=== PATIENT | female | born 1940 | race Caucasian/White ===

== ENCOUNTER → 2016-10-13 | Outpatient (CLI) | payer MEDICARE, MEDICAID ==
[~2016-10-13] MED LIST: ASPRIN PO; BIAXIN500 MG PO; CIPRODEX 0.3%-7.5 ML OT; CLARITIN10 MG PO; DARVOCET N 1001 TAB PO; GLUCOPHAGE500 MG PO; HYDROCODONE BIT1 T11 PO; TENORETIC 50 501 TAB PO; VALTREX1 GM PO; VICODIN 500 MG-1 TAB PO; ZOCOR20 MG PO; [UNRECOGNIZED DRUG - REMARK] PO; [UNRECOGNIZED DRUG - REMARK] PO
[2016-10-13 12:23] LABS: ALBUMIN 3.7 gm/dl (3.1-4.5); BILIRUBIN, TOTAL 0.4 mg/dl (0.2-1.0); FREE T4 1.24 ng/dl (0.76-1.46); POTASSIUM 4.6 mmol/L (3.5-5.1); TOTAL PROTEIN 7.2 gm/dL (6.4-8.2)
[2016-10-13 12:29] LABS: THYROID STIM HORMONE (HS) 1.53 uIU/ml (0.358-4.75)
== END | disposition home or self-care (01) ==
LOC: LAB 10:50 → RAD 11:00
PROVIDERS: Internal Medicine
DX: Z13.820 Encounter for screening for osteoporosis (principal); E05.90 Thyrotoxicosis, unspecified without thyrotoxic crisis or storm; Z78.0 Asymptomatic menopausal state

== ENCOUNTER → 2016-12-30 | Outpatient (CLI) | payer MEDICARE, MEDICAID ==
[2016-12-30 10:39] LABS: BASO # 0.1 10*3/uL (0.0-0.1); BASO % 0.8 % (0.0-1.0); EOS # 0.1 10*3/uL (0.0-0.4); EOS % 1.7 % (1.0-4.0); HEMATOCRIT 36.9 % (37.0-47.0); HEMOGLOBIN 11.5 g/dl (12.0-16.0); LYMPH # 1.6 10*3/uL (1.3-4.4); LYMPH % 27.3 % (27.0-41.0); MEAN CELL VOLUME 96.9 fl (81.0-99.0); MEAN CORPUSCULAR HGB 30.2 pg (27.0-31.0); MEAN CORPUSCULAR HGB CONC 31.2 g/dl (33.0-37.0); MEAN PLATELET VOLUME 11.3 fl (9.6-12.3); MONO # 0.3 10*3/uL (0.1-1.0); MONO % 5.4 % (3.0-9.0); NEUT # 3.8 10*3/uL (2.3-7.9); NEUT % 64.6 % (47.0-73.0); PLATELET COUNT AUTOMATED 226 10*3/uL (130-400); RED BLOOD COUNT 3.81 10*6/uL (4.10-5.10); RED CELL DISTRI WIDTH 12.7 % (0-14.5); WHITE BLOOD COUNT 5.9 10*3/uL (4.8-10.8)
[2016-12-30 11:04] LABS: ALBUMIN 3.5 gm/dl (3.1-4.5); CREATININE 1.49 mg/dL (0.55-1.02); FREE T4 1.23 ng/dl (0.76-1.46); POTASSIUM 4.7 mmol/L (3.5-5.1); TOTAL PROTEIN 6.9 gm/dL (6.4-8.2)
[2016-12-30 11:09] LABS: THYROID STIM HORMONE (HS) 1.06 uIU/ml (0.358-4.75)
== END ==
LOC: LAB 10:07
PROVIDERS: Internal Medicine
DX: E11.9 Type 2 diabetes mellitus without complications (principal); E05.90 Thyrotoxicosis, unspecified without thyrotoxic crisis or storm; E78.00 Pure hypercholesterolemia, unspecified

== ENCOUNTER → 2017-11-30 | Outpatient (CLI) | payer MEDICARE, MEDICAID ==
--- NOTE | ~2017-11-30 | EKG ---
[place], [place] ELECTROCARDIOGRAM REPORT NAME: WENCESLAO CARRASQUILLO UNIT #: [id number] ROOM: DOCTOR: EPIPHANY DRAFT REPORT BIRTHDATE: [birth year] [facility] Test Date: 2017-11-30 Test Time: 11:21:36 Pat Name: WENCESLAO CARRASQUILLO Department: Room: Gender: F Patient Assessment Coordinator: Anny Campos : 1940 Requested By: WILLIAMS ABEL Order Number: [id number] Reading MD: Williams Abel MD Measurements Intervals [place] Rate: 69 P: 60 [place]: 181 QRS: 18 QRSD: 84 T: 22 QT: 397 QTc: 426 Interpretive Statements Sinus rhythm Low voltage, precordial leads Abnormal R-wave progression, early transition Electronically Signed On 11-30-2017 19:10:02 PDT by Williams Abel MD CM:EKGRPT:ELECTROCARDIOGRAM REPORT [id number] WILLIAMS ABEL MD EPIPHANY DRAFT REPORT WILLIAMS ABEL MD
[2017-11-30 11:08] LABS: BASO # 0.1 10*3/uL (0.0-0.1); BASO % 0.8 % (0.0-1.0); EOS # 0.1 10*3/uL (0.0-0.4); EOS % 2.2 % (1.0-4.0); HEMATOCRIT 37.8 % (37.0-47.0); HEMOGLOBIN 11.8 g/dl (12.0-16.0); LYMPH # 1.8 10*3/uL (1.3-4.4); LYMPH % 28.3 % (27.0-41.0); MEAN CELL VOLUME 99.2 fl (81.0-99.0); MEAN CORPUSCULAR HGB CONC 31.2 g/dl (33.0-37.0); MEAN PLATELET VOLUME 11.8 fl (9.6-12.3); MONO # 0.4 10*3/uL (0.1-1.0); NEUT % 62.5 % (47.0-73.0); PLATELET COUNT AUTOMATED 230 10*3/uL (130-400); RED BLOOD COUNT 3.81 10*6/uL (4.10-5.10); RED CELL DISTRI WIDTH 13.4 % (0-14.5); WHITE BLOOD COUNT 6.5 10*3/uL (4.8-10.8)
[2017-11-30 11:36] LABS: ALBUMIN 3.5 gm/dl (3.1-4.5); ALKALINE PHOSPHATASE 59 U/L (45-117); BILIRUBIN, DIRECT < 0.1 mg/dL (0.0-0.2); BUN 24 mg/dl (7-24); CHLORIDE 106 mmol/L (98-107); CREATININE 1.35 mg/dL (0.55-1.02); FREE T4 1.18 ng/dl (0.76-1.46); POTASSIUM 4.4 mmol/L (3.5-5.1); SGOT/AST 11 IU/L (3-35); SGPT/ALT 14 U/L (12-78); SODIUM 141 mmol/L (136-145); TOTAL PROTEIN 6.7 gm/dL (6.4-8.2)
[2017-11-30 11:50] LABS: ACT PARTIAL THROMBO TIME 20.2 SECONDS (20.8-31.5); INTERNATIONAL NORM RATIO 0.9 (2.0-3.5)
== END | disposition home or self-care (01) ==
LOC: LAB 10:07
DX: Z01.818 Encounter for other preprocedural examination (principal); E05.90 Thyrotoxicosis, unspecified without thyrotoxic crisis or storm; E04.2 Nontoxic multinodular goiter; I10 Essential (primary) hypertension; D68.9 Coagulation defect, unspecified

== ENCOUNTER → 2018-01-23 | Outpatient (CLI) | payer MEDICARE, MEDICAID ==
[2018-01-23 11:48] LABS: CREATININE 1.23 mg/dL (0.55-1.02); FREE T4 1.82 ng/dl (0.76-1.46); POTASSIUM 4.4 mmol/L (3.5-5.1)
[2018-01-23 11:54] LABS: THYROID STIM HORMONE (HS) 0.084 uIU/ml (0.358-4.75)
[2018-01-24 05:07] LABS: FREE T3 010389 3.3 pg/mL (2.0-4.4)
== END | disposition home or self-care (01) ==
LOC: LAB 10:43
PROVIDERS: Specialist
DX: E05.90 Thyrotoxicosis, unspecified without thyrotoxic crisis or storm (principal)

== ENCOUNTER 2018-03-12 15:06 | Inpatient (IN) | payer MEDICARE, MEDICAID ==
[~2018-03-12] VITALS: Ht 157.5 cm; Wt 83.7 kg
--- NOTE | ~2018-03-12 | EKG ---
[place], [place] ELECTROCARDIOGRAM REPORT NAME: WENCESLAO CARRASQUILLO UNIT #: [id number] ROOM: 515 DOCTOR: IDALMIS DRAFT REPORT BIRTHDATE: [birth year] [facility] Test Date: 2018-03-12 Test Time: 18:34:31 Pat Name: WENCESLAO CARRASQUILLO Department: Room: [facility] Gender: F Chair Upholsterer: Catherine Macias : 1940 Requested By: MAR CASTILLO Order Number: [id number] Reading MD: Be Cardenas MD Measurements Intervals [place] Rate: 79 P: 36 [place]: 186 QRS: 21 QRSD: 80 T: 26 QT: 362 QTc: 416 Interpretive Statements Sinus rhythm Abnormal R-wave progression, early transition Compared to ECG 11/30/2017 11:21:36 No significant changes Electronically Signed On 03-14-2018 9:05:14 PST by Be Cardenas MD CM:EKGRPT:ELECTROCARDIOGRAM REPORT [id number] MAR CASTILLO EPIPHANY DRAFT REPORT MAR CASTILLO
--- NOTE | ~2018-03-12 | EKG ---
[place], [place] ELECTROCARDIOGRAM REPORT NAME: WENCESLAO CARRASQUILLO UNIT #: [id number] ROOM: 515 DOCTOR: IDALMIS DRAFT REPORT BIRTHDATE: [birth year] [facility] Test Date: 2018-03-12 Test Time: 15:12:22 Pat Name: WENCESLAO CARRASQUILLO Department: Room: [facility] Gender: F Quality Assurance Consultant: Catherine Macias : 1940 Requested By: MAR CASTILLO Order Number: [id number] Reading MD: Be Cardenas MD Measurements Intervals [place] Rate: 93 P: 57 [place]: 188 QRS: 41 QRSD: 80 T: 30 QT: 329 QTc: 410 Interpretive Statements Sinus rhythm Atrial premature complex Low voltage, precordial leads Borderline ST depression, anterolateral leads Compared to ECG 11/30/2017 11:21:36 Atrial premature complex(es) now present ST (T wave) deviation now present Electronically Signed On 03-14-2018 9:03:30 PST by Be Cardenas MD CM:EKGRPT:ELECTROCARDIOGRAM REPORT [id number] MAR CASTILLO EPIPHANY DRAFT REPORT MAR CASTILLO
--- NOTE | ~2018-03-12 | EKG ---
[place], [place] ELECTROCARDIOGRAM REPORT NAME: WENCESLAO CARRASQUILLO UNIT #: [id number] ROOM: 515 DOCTOR: FRANKANY DRAFT REPORT BIRTHDATE: [birth year] [facility] Test Date: 2018-03-12 Test Time: 20:44:14 Pat Name: WENCESLAO CARRASQUILLO Department: Room: [facility] Gender: F Surgical Tech: Catherine Macias : 1940 Requested By: MAR CASTILLO Order Number: [id number] Reading MD: Be Cardenas MD Measurements Intervals [place] Rate: 71 P: 32 MA: 191 QRS: 30 QRSD: 78 T: 25 QT: 396 QTc: 431 Interpretive Statements Sinus rhythm Abnormal R-wave progression, early transition Compared to ECG 11/30/2017 11:21:36 No significant changes Electronically Signed On 03-14-2018 9:06:08 PST by Be Cardenas MD CM:EKGRPT:ELECTROCARDIOGRAM REPORT [id number] MAR CASTILLO EPIPHANY DRAFT REPORT MAR CASTILLO
[2018-03-12 15:15] VITALS: BP 181/68
[2018-03-12 15:37] LABS: BASO % 0.6 % (0.0-1.0); EOS # 0.1 10*3/uL (0.0-0.4); EOS % 1.4 % (1.0-4.0); HEMATOCRIT 39.2 % (37.0-47.0); HEMOGLOBIN 12.5 g/dl (12.0-16.0); LYMPH # 1.9 10*3/uL (1.3-4.4); LYMPH % 26.7 % (27.0-41.0); MEAN CELL VOLUME 94.5 fl (81.0-99.0); MEAN CORPUSCULAR HGB 30.1 pg (27.0-31.0); MEAN CORPUSCULAR HGB CONC 31.9 g/dl (33.0-37.0); MONO # 0.4 10*3/uL (0.1-1.0); MONO % 5.5 % (3.0-9.0); NEUT # 4.6 10*3/uL (2.3-7.9); NEUT % 65.5 % (47.0-73.0); PLATELET COUNT AUTOMATED 266 10*3/uL (130-400); RED BLOOD COUNT 4.15 10*6/uL (4.10-5.10); RED CELL DISTRI WIDTH 13.7 % (0-14.5)
--- NOTE | 2018-03-12 15:39 | NUR ---
STATES THAT THE PRESSURE IS GONE BETWEEN HER SHOULDER BLADES.
[2018-03-12 15:55] LABS: ALBUMIN 3.3 gm/dl (3.1-4.5); ALKALINE PHOSPHATASE 52 U/L (45-117); BUN 23 mg/dl (7-24); CHLORIDE 109 mmol/L (98-107); CREATININE 1.21 mg/dL (0.55-1.02); POTASSIUM 4.3 mmol/L (3.5-5.1); SGOT/AST 13 IU/L (3-35); SGPT/ALT 19 U/L (12-78); SODIUM 141 mmol/L (136-145); TOTAL PROTEIN 6.6 gm/dL (6.4-8.2)
[2018-03-12 15:58] LABS: LIPASE 101 U/L (73-393); TROPONIN I < 0.015 ng/ml (<0.045)
[2018-03-12 16:19] LABS: ACT PARTIAL THROMBO TIME 21.9 SECONDS (20.8-31.5); INTERNATIONAL NORM RATIO 0.9 (2.0-3.5)
[2018-03-12 16:31] VITALS: BP 168/75
[2018-03-12] MEDS ORDERED: PRINIVIL10 MG PO (16:35)
[2018-03-12] MEDS ORDERED: VITAMIN D-32000 UNI1 PO (16:36)
[2018-03-12] MEDS ORDERED: LEVOXYL112 MCG PO (16:37)
[2018-03-12] MEDS ORDERED: MELOXICAM15 MG PO (16:38)
--- NOTE | 2018-03-12 16:39 | NUR ---
RESIDENT IN ROOM. ADMISSION INFO RECIEVED
--- NOTE | 2018-03-12 16:40 | NUR ---
STILL PRESSURE FREE.
--- NOTE | 2018-03-12 17:02 | NUR ---
A 78, admitted to 5E, under the services of KIERA Rodriguez DO with a diagnosis of CP R/O PR. Chief complaint is CHEST PAIN. Patient arrived via bed from ER. Monitor applied. Initial assessment completed. Vital signs taken and recorded. KIERA RODRIGUEZ DO notified of admission to the unit. Orders received. See assessment for past medical history, medications and allergies. Patient and/or family oriented to unit. Clothing/patient valuable form completed. DAYNE MOSLEY
--- NOTE | 2018-03-12 17:37 | NUR ---
INFORMED THAT MEDICATIONS ARE VERIFIED.
--- NOTE | 2018-03-12 18:08 | NUR ---
ANSWERING SERVICES CALLED FOR .
--- NOTE | 2018-03-12 18:10 | NUR ---
INFORMED OF CONSULT. STATED HE WILL SEE IN MORNING.
--- NOTE | 2018-03-12 18:27 | NUR ---
PATIENT MEDICATED WITH TYLENOL FOR C/O HEADACHE. WILL MONITOR.
[2018-03-12 20:00] VITALS: BP 144/64
--- NOTE | 2018-03-12 20:00 | NUR ---
RESTING IN BED WITH NO DISTRESS NOTED. RESPIRATIONS EASY. LUNGS DIMINISHED, CLEAR. PULSE OX 99% RA. TRACE BLE EDEMA - OFFERED AND EDUCATED REGARDING, RECEPTIVE AND TEDS PLACED AT BEDSIDE. CALL LIGHT WITHIN REACH. NO VOICED COMPLAINTS
--- NOTE | 2018-03-12 22:00 | NUR ---
BSG 178, DECLINED COVERAGE. WILL RECHECK IN AM
--- NOTE | 2018-03-12 23:44 | NUR ---
REQUESTED AND RECEIVED TYLENOL PER PRN ORDER FOR COMPLAINTS OF BACK PAIN RATING A 6. CALL LIGHT WITHIN REACH. WILL MONITOR FOR EFFECTIVENESS
[2018-03-13] VITALS: BP 133/50
--- NOTE | 2018-03-13 00:30 | NUR ---
EARLIER TYLENOL APPEARS EFFECTIVE. SLEEPING. RESPIRATIONS EASY. VSS. CALL LIGHT WITIN REACH
--- NOTE | 2018-03-13 02:15 | NUR ---
24 HR chart check completed.
--- NOTE | 2018-03-13 06:00 | NUR ---
SLEPT THROUGHOUT NIGHT WITH NO DISTRESS NOTED. RESPIRATIONS EASY. NPO STATUS MAINTAINED FOR TESTING. CALL LIGHT WITHIN REACH. NO VOICED COMPLAINTS THIS SHIFT
[2018-03-13 06:21] LABS: BASO % 0.6 % (0.0-1.0); EOS # 0.1 10*3/uL (0.0-0.4); HEMATOCRIT 38.8 % (37.0-47.0); HEMOGLOBIN 12.1 g/dl (12.0-16.0); LYMPH # 2.6 10*3/uL (1.3-4.4); LYMPH % 38.9 % (27.0-41.0); MEAN CELL VOLUME 95.3 fl (81.0-99.0); MEAN CORPUSCULAR HGB 29.7 pg (27.0-31.0); MEAN CORPUSCULAR HGB CONC 31.2 g/dl (33.0-37.0); MEAN PLATELET VOLUME 10.9 fl (9.6-12.3); MONO # 0.4 10*3/uL (0.1-1.0); MONO % 5.3 % (3.0-9.0); NEUT # 3.5 10*3/uL (2.3-7.9); NEUT % 52.9 % (47.0-73.0); PLATELET COUNT AUTOMATED 264 10*3/uL (130-400); RED BLOOD COUNT 4.07 10*6/uL (4.10-5.10); RED CELL DISTRI WIDTH 13.5 % (0-14.5); WHITE BLOOD COUNT 6.6 10*3/uL (4.8-10.8)
[2018-03-13 06:53] LABS: CREATININE 1.09 mg/dL (0.55-1.02); FREE T4 1.28 ng/dl (0.76-1.46); PHOSPHOROUS 3.6 mg/dL (2.5-4.9); POTASSIUM 3.9 mmol/L (3.5-5.1)
[2018-03-13 06:59] LABS: THYROID STIM HORMONE (HS) 1.05 uIU/ml (0.358-4.75)
--- NOTE | 2018-03-13 07:50 | NUR ---
RESTING IN BED. RESP-EASY AND REGULAR. WITH MOVEMENT STATES LEFT SHOULDER BLADE/BACK PAIN, RATES PAIN 5 ON PAIN SCALE. REFUSED MEDICATION AT THIS TIME. CALL LIGHT IN REACH. WAITING TO GO FOR STRESS TEST. SEE SHIFT ASESSMENT.
[2018-03-13 08:24] LABS: VITAMIN D, 25-HYDROXY 38.7 ng/mL (30-100)
--- NOTE | 2018-03-13 09:00 | NUR ---
OFF FLOOR FOR STRESS TEST.
--- NOTE | 2018-03-13 10:23 | NUR ---
Fire Medic in to talk to patient. Patient states lives at HOME with DAUGHTER. There are 10 steps in the home. Physician: KIRK TEJADA [facility] health services: NONE Patient's level of ADLs: INDEPENDENT Patient has working utilities: YES DME: NONE Follow-up physician's appointment after d/c: [facility] NURSE DIRECTOR ON DISCHARGE Does patient want to access PORTAL?: NO Discharge plan PT STATES SHE LIVES AT HOME WITH HER DAUGHTER LIVING WITH HER. STATES SHE IS INDEPENDENT IN CARE AND HAS NO NEEDS ON DISCHARGE. PT CAN BE DISCHARGED TO HOME WHEN MEDICALLY STABLE. WILL CONTINUE TO FOLLOW.. KEO FONG
--- NOTE | 2018-03-13 10:40 | NUR ---
INFORMED CONSENT SIGNED FOR LEXISCAN STRESS TEST WITH DR. ROCK. RESTING EKG NSR HR 76,BP 170/84. PULSE OX 98% AND LUNGS CLEAR. COMPLETED ONE MINUTE OF LEXISCAN STRESS TEST RECEIVING LEXISCAN 0.4MG OVER [address] SEC[address] NO ARRHYTHMIAS OR [address] CHANGES PRESENT. PT C/O WEIRD FEELING. LAST RECOVERY HR 91,BP 162/84. WAITING NUCLEAR SCANNING IN STABLE CONDITION.
--- NOTE | 2018-03-13 11:50 | NUR ---
RETURNED TO FLOOR FROM STRESS TEST.
[2018-03-13 12:00] VITALS: BP 169/65
--- NOTE | 2018-03-13 12:10 | NUR ---
PT TOLERATED ROUTINE MEDS WITH NO PROBLEM. BSG-168, SEE EMAR. C/O HEADACHE, RATES PAIN 10 ON PAIN SCALE 0-10. MEDICATED WITH NORCO PO PER PRN ORDER, SEE EMAR. CALL LIGHT IN REACH.
--- NOTE | 2018-03-13 14:19 | NUR ---
PT C/O HEADACHE, RATES PAIN 7 ON PAIN SCALE 0-10. MEDICATED IWTH TYLNEOL TWO TAB PO PER PRN ORDER, SEE EMAR. CALL LIGHT IN REACH.
--- NOTE | 2018-03-13 15:00 | NUR ---
STATES PAIN MEDICATION HELPED A LITTLE. CALL LIGHT IN REACH.
[2018-03-13 16:00] VITALS: BP 141/61
[2018-03-13] MEDS ORDERED: B12100 MC1 PO (16:21)
--- NOTE | 2018-03-13 16:57 | NUR ---
C/O HEADACHE RATES PAIN 6 ON PAIN SCALE 0-10. MEDICATED WITH NORCO PO PER PRN ORDER, SEE EMAR. CALL LIGHT IN REACH. SEE SHIFT ASSESSMNET.
--- NOTE | 2018-03-13 18:45 | NUR ---
AMBULATORY OFF THE FLOOR.
--- NOTE | 2018-03-13 18:55 | NUR ---
Discharge instructions reviewed with patient/family. Patient receptive and verbalizes understanding. Follow-up care arranged. Written instructions given to patient/family. HEPLOCK REMOVED 2X2 APPLIED. MONITOR REMOVED. MATTHEW JACOBO
--- NOTE | 2018-03-13 19:25 | NUR ---
PT AMBULATORY OFF THE FLOOR FOR DISCHARGE, FAMILY WAITING OUTSIDE.
== END 2018-03-13 19:25 | disposition home or self-care (01) | DRG 392 ==
LOC: ED 15:06 → EDHOLD 16:15 → 5E 16:15
PROVIDERS: Emergency Medicine; Family Medicine; Nurse Practitioner Family; ADMIT Internal Medicine
PROC: 3E073KZ Introduction of Other Diagnostic Substance into Coronary Artery, Percutaneous Approach (ICD-10-PCS; principal; 2018-03-13)
PROC: 4A02XM4 Measurement of Cardiac Total Activity, External Approach (ICD-10-PCS; principal; 2018-03-13)
DX: K21.9 Gastro-esophageal reflux disease without esophagitis (principal); I16.0 Hypertensive urgency; N18.3 Chronic kidney disease, stage 3 (moderate); F32.9 Major depressive disorder, single episode, unspecified; M19.90 Unspecified osteoarthritis, unspecified site; I12.9 Hypertensive chronic kidney disease with stage 1 through stage 4 chronic kidney disease, or unspecified chronic kidney disease; E87.8 Other disorders of electrolyte and fluid balance, not elsewhere classified; E11.65 Type 2 diabetes mellitus with hyperglycemia; E11.22 Type 2 diabetes mellitus with diabetic chronic kidney disease; M51.35 Other intervertebral disc degeneration, thoracolumbar region; Z88.9 Allergy status to unspecified drugs, medicaments and biological substances; Z88.1 Allergy status to other antibiotic agents; Z90.710 Acquired absence of both cervix and uterus; Z90.49 Acquired absence of other specified parts of digestive tract; Z83.3 Family history of diabetes mellitus; Z83.6 Family history of other diseases of the respiratory system; Z82.49 Family history of ischemic heart disease and other diseases of the circulatory system; Z79.84 Long term (current) use of oral hypoglycemic drugs

== ENCOUNTER → 2018-09-04 | Outpatient (CLI) | payer MEDICARE, MEDICAID ==
[~2018-09-04] MED LIST changes: +B12100 MC1 PO; +LEVOXYL112 MCG PO; +MELOXICAM15 MG PO; +PRINIVIL10 MG PO; +VITAMIN D-32000 UNI1 PO
[2018-09-04 12:20] LABS: FREE T4 1.23 ng/dl (0.76-1.46)
== END | disposition home or self-care (01) ==
LOC: LAB 10:15
PROVIDERS: Internal Medicine Endocrinology, Diabetes & Metabolism
DX: E03.9 Hypothyroidism, unspecified (principal); E11.9 Type 2 diabetes mellitus without complications; E55.9 Vitamin D deficiency, unspecified

== ENCOUNTER 2018-10-02 14:04 | Emergency (ER) | payer MEDICARE, MEDICAID ==
[~2018-10-02] VITALS: Ht 157.4 cm; Wt 81.6 kg
[2018-10-02 15:43] LABS: BASO % 0.6 % (0.0-1.0); EOS # 0.1 10*3/uL (0.0-0.4); HEMATOCRIT 36.8 % (37.0-47.0); HEMOGLOBIN 11.6 g/dl (12.0-16.0); LYMPH # 2.2 10*3/uL (1.3-4.4); LYMPH % 33.8 % (27.0-41.0); MEAN CELL VOLUME 99.7 fl (81.0-99.0); MEAN CORPUSCULAR HGB 31.4 pg (27.0-31.0); MEAN CORPUSCULAR HGB CONC 31.5 g/dl (33.0-37.0); MEAN PLATELET VOLUME 10.8 fl (9.6-12.3); MONO # 0.5 10*3/uL (0.1-1.0); MONO % 7.1 % (3.0-9.0); NEUT # 3.7 10*3/uL (2.3-7.9); NEUT % 56.3 % (47.0-73.0); PLATELET COUNT AUTOMATED 227 10*3/uL (130-400); RED BLOOD COUNT 3.69 10*6/uL (4.10-5.10); RED CELL DISTRI WIDTH 13.4 % (0-14.5); WHITE BLOOD COUNT 6.5 10*3/uL (4.8-10.8)
[2018-10-02 15:59] LABS: ACT PARTIAL THROMBO TIME 22.8 SECONDS (20.0-32.1); INTERNATIONAL NORM RATIO 0.9 (2.0-3.5)
[2018-10-02 16:00] LABS: ALBUMIN 3.4 gm/dl (3.1-4.5); ALKALINE PHOSPHATASE 48 U/L (45-117); BUN 22 mg/dl (7-24); CHLORIDE 105 mmol/L (98-107); CREATININE 1.28 mg/dL (0.55-1.02); POTASSIUM 4.5 mmol/L (3.5-5.1); SGOT/AST 10 IU/L (3-35); SGPT/ALT 17 U/L (12-78); SODIUM 138 mmol/L (136-145); TOTAL PROTEIN 6.3 gm/dL (6.4-8.2)
[2018-10-02 16:24] LABS: TROPONIN I < 0.015 ng/ml (<0.045)
[2018-10-02 16:55] VITALS: BP 160/82
== END 2018-10-02 17:01 | disposition short-term general hospital (02) ==
LOC: ED 14:04
PROVIDERS: Emergency Medicine
DX: S06.6X9A Traumatic subarachnoid hemorrhage with loss of consciousness of unspecified duration, initial encounter (principal); S00.12XA Contusion of left eyelid and periocular area, initial encounter; S00.83XA Contusion of other part of head, initial encounter; E11.22 Type 2 diabetes mellitus with diabetic chronic kidney disease; I12.9 Hypertensive chronic kidney disease with stage 1 through stage 4 chronic kidney disease, or unspecified chronic kidney disease; N18.3 Chronic kidney disease, stage 3 (moderate); E78.5 Hyperlipidemia, unspecified; E03.9 Hypothyroidism, unspecified; E66.9 Obesity, unspecified; Z88.1 Allergy status to other antibiotic agents; Z79.899 Other long term (current) drug therapy; Z79.82 Long term (current) use of aspirin; Z90.710 Acquired absence of both cervix and uterus; Z90.49 Acquired absence of other specified parts of digestive tract; W19.XXXA Unspecified fall, initial encounter; Y93.89 Activity, other specified; Y92.89 Other specified places as the place of occurrence of the external cause; Y99.8 Other external cause status

== ENCOUNTER → 2019-02-06 | Outpatient (CLI) | payer MEDICARE, MEDICAID | END | disposition home or self-care (01) | LOC: MRI 12:59 | DX: M25.411 Effusion, right shoulder (principal); M75.111 Incomplete rotator cuff tear or rupture of right shoulder, not specified as traumatic ==

== ENCOUNTER → 2019-03-25 | Outpatient (CLI) | payer MEDICARE, MEDICAID | END | disposition home or self-care (01) | LOC: MAMMO 12:59 | DX: Z12.31 Encounter for screening mammogram for malignant neoplasm of breast (principal); N63.11 Unspecified lump in the right breast, upper outer quadrant ==

== ENCOUNTER → 2022-03-14 | Outpatient (CLI) | payer MEDICARE, MEDICAID | END | disposition home or self-care (01) | LOC: RAD 15:42 | PROVIDERS: ATTEND Physician Assistant | DX: M16.11 Unilateral primary osteoarthritis, right hip (principal); M25.851 Other specified joint disorders, right hip; W19.XXXA Unspecified fall, initial encounter ==

== ENCOUNTER 2023-07-27 16:06 | Emergency (ER) | payer MEDICARE, MEDICAID ==
[~2023-07-27] VITALS: Ht 157.4 cm; Wt 72.6 kg
[~2023-07-27 16:06] MED LIST changes: +ANASTROZOLE1 M1 PO; +ATENOLOL25 MG PO; +CIPRO500 MG PO; +SYNTHROID,LEVO88 MCG PO; +TUMS200 MG PO; +XARELTO1 EACH PO; +ZYRTEC10 M2 PO
[2023-07-27 16:13] VITALS: BP 153/52
[2023-07-27 17:00] LABS: HEMATOCRIT 32.4 % (37.0-47.0); LYMPH # 0.6 10*3/uL (1.3-4.4); LYMPH % 7.9 % (27.0-41.0); MEAN CELL VOLUME 101.6 fl (81.0-99.0); MEAN CORPUSCULAR HGB 32.3 pg (27.0-31.0); MEAN CORPUSCULAR HGB CONC 31.8 g/dl (33.0-37.0); MEAN PLATELET VOLUME 10.6 fl (9.6-12.3); MONO # 0.2 10*3/uL (0.1-1.0); NEUT # 6.2 10*3/uL (2.3-7.9); NEUT % 88.8 % (47.0-73.0); PLATELET COUNT AUTOMATED 215 10*3/uL (130-400); RED BLOOD COUNT 3.19 10*6/uL (4.10-5.10); RED CELL DISTRI WIDTH 12.8 % (0-14.5)
[2023-07-27 17:26] LABS: POTASSIUM 3.7 mmol/L (3.4-5.1)
== END 2023-07-27 18:46 | disposition home or self-care (01) ==
LOC: ED 16:06
PROVIDERS: Emergency Medicine
DX: S00.83XA Contusion of other part of head, initial encounter (principal); E11.9 Type 2 diabetes mellitus without complications; Z88.1 Allergy status to other antibiotic agents; Z88.8 Allergy status to other drugs, medicaments and biological substances; Z90.710 Acquired absence of both cervix and uterus; Z90.49 Acquired absence of other specified parts of digestive tract; Z90.89 Acquired absence of other organs; Z98.890 Other specified postprocedural states; W17.89XA Other fall from one level to another, initial encounter; Y93.89 Activity, other specified; Y92.89 Other specified places as the place of occurrence of the external cause; Y99.8 Other external cause status

== ENCOUNTER 2023-11-03 10:49 | Inpatient (IN) | payer MEDICARE ==
[~2023-11-03] VITALS: Ht 157.4 cm; Wt 71.0 kg
[~2023-11-03 10:49] MED LIST changes: +ASPIRIN81 M1 PO; +Carafate1 GM PO; +DOCUSATE SOD100 MG PO; +DOXYCYCLINE HY100 M3 PO; +Humalog SQ; +LEVOTHYROXINE100 MC1 PO; +MIRALAX POWDER17 G1 PO; +NYAMYC15 GM T; +PROTONIX40 MG PO; +SEPTDS PO; +VITAMIN B-12100 MCG PO; +VITAMIN B1250 MCG PO; +XARE20MG PO
[2023-11-03 15:00] VITALS: BP 141/59
[2023-11-03] MEDS ORDERED: LORazepam 1 MG TAB PO PRN (15:20)
[2023-11-03] MEDS ORDERED: Ziprasidone Mesylate 20 MG VIAL IM PRN (15:20)
[2023-11-03] MEDS ORDERED: LORazepam 2 MG/ML VIAL IM PRN (15:20)
[2023-11-03] MEDS ORDERED: Magnesium Hydroxide 30 ML UDC PO PRN (15:30)
[2023-11-03] MEDS ORDERED: ACETAMINOPHEN 325 MG TAB PO PRN (15:30)
[2023-11-03] MEDS ORDERED: MG-AL HYDROXIDE/SIMETICONE 30 ML UDC PO PRN (15:30)
[2023-11-03] MEDS ORDERED: DEXTROSE 10 % IN WATER 250 ML IV PRN (16:20)
[2023-11-03] MEDS ORDERED: INSULIN LISPRO 1 UNIT/0.01 ML SQ SCH (16:30)
[2023-11-03] MEDS ORDERED: SUCRALFATE 1 GM TAB PO SCH (16:30)
[2023-11-03 20:00] VITALS: BP 142/68
[2023-11-03] MEDS ORDERED: Mirtazapine 15 MG TAB PO SCH (21:00)
[2023-11-03] MEDS ORDERED: SIMVASTATIN 20 MG TAB PO SCH (21:00)
[2023-11-03] MEDS ORDERED: Pantoprazole Sodium 40 MG TAB PO SCH (21:00)
[2023-11-03] MEDS ORDERED: DOCUSATE SODIUM 100 MG CAP PO SCH (21:00)
[2023-11-03] MEDS ORDERED: Memantine Hydrochloride 5 MG TAB PO SCH (21:00)
[2023-11-04 03:28] LABS: BILIRUBIN Negative (Negative); BLOOD Negative (Negative); CLARITY Clear (Clear); COLOR Yellow (Yellow); GLUCOSE Negative (Negative); KETONE Negative (Negative); LEUKO ESTERASE Trace (Negative); NITRITE Negative (Negative); SPECIFIC GRAVITY <= 1.005 (1.001-1.030); UROBILINOGEN 0.2 E.U./dl (0.0-1.0)
[2023-11-04 04:08] LABS: BACTERIA 3+
[2023-11-04] MEDS ORDERED: Levothyroxine Sodium 100 MCG TAB PO SCH (06:00)
[2023-11-04 06:58] LABS: BASO % 0.4 % (0.0-1.0); EOS # 0.1 10*3/uL (0.0-0.4); HEMATOCRIT 30.1 % (37.0-47.0); LYMPH % 28.9 % (27.0-41.0); MEAN CELL VOLUME 92.9 fl (81.0-99.0); MEAN CORPUSCULAR HGB 27.8 pg (27.0-31.0); MEAN CORPUSCULAR HGB CONC 29.9 g/dl (33.0-37.0); MEAN PLATELET VOLUME 10.5 fl (9.6-12.3); MONO # 0.4 10*3/uL (0.1-1.0); MONO % 5.9 % (3.0-9.0); NEUT # 4.4 10*3/uL (2.3-7.9); NEUT % 63.4 % (47.0-73.0); PLATELET COUNT AUTOMATED 317 10*3/uL (130-400); RED BLOOD COUNT 3.24 10*6/uL (4.10-5.10); RED CELL DISTRI WIDTH 15.1 % (0-14.5); WHITE BLOOD COUNT 6.9 10*3/uL (4.8-10.8)
[2023-11-04 07:27] LABS: VITAMIN D, 25-HYDROXY 44.2 ng/mL (30-100)
[2023-11-04 07:29] LABS: POTASSIUM 4.3 mmol/L (3.4-5.1); TOTAL PROTEIN 6.2 gm/dL (6.0-8.0)
[2023-11-04 08:24] VITALS: BP 118/87
[2023-11-04] MEDS ORDERED: RIVAROXABAN 20 MG TAB PO SCH (09:00)
[2023-11-04] MEDS ORDERED: CYANOCOBALAMIN 100 MCG TAB PO SCH (09:00)
[2023-11-04] MEDS ORDERED: LISINOPRIL 10 MG TAB PO SCH (09:00)
[2023-11-04] MEDS ORDERED: Polyethylene Glycol 3350 17 GM PACKET PO SCH (09:00)
[2023-11-04] MEDS ORDERED: Rivastigmine Tartrate 4.6 MG/24 HR PATCH T SCH (09:00)
[2023-11-04] MEDS ORDERED: ATENOLOL 25 MG TAB PO SCH (10:00)
[2023-11-04 20:00] VITALS: BP 125/60
[2023-11-05 06:54] LABS: BASO % 0.5 % (0.0-1.0); EOS # 0.1 10*3/uL (0.0-0.4); EOS % 1.7 % (1.0-4.0); HEMATOCRIT 33.1 % (37.0-47.0); LYMPH % 37.3 % (27.0-41.0); MEAN CELL VOLUME 94.8 fl (81.0-99.0); MEAN CORPUSCULAR HGB 27.5 pg (27.0-31.0); MEAN PLATELET VOLUME 10.1 fl (9.6-12.3); MONO # 0.6 10*3/uL (0.1-1.0); MONO % 7.3 % (3.0-9.0); NEUT # 4.3 10*3/uL (2.3-7.9); NEUT % 52.3 % (47.0-73.0); PLATELET COUNT AUTOMATED 342 10*3/uL (130-400); RED BLOOD COUNT 3.49 10*6/uL (4.10-5.10); RED CELL DISTRI WIDTH 15.2 % (0-14.5); WHITE BLOOD COUNT 8.1 10*3/uL (4.8-10.8)
[2023-11-05 07:20] LABS: POTASSIUM 3.9 mmol/L (3.4-5.1)
[2023-11-05 08:00] VITALS: BP 141/68
[2023-11-05] MEDS ORDERED: FOLIC ACID 1 MG TAB PO SCH (09:00)
[2023-11-05] MEDS ORDERED: Fosfomycin Tromethamine 3 GM PDS PO SCH (13:00)
[2023-11-05 19:06] VITALS: BP 128/86
[2023-11-06 08:00] VITALS: BP 96/77
[2023-11-06] MEDS ORDERED: Memantine Hydrochloride 5 MG TAB PO SCH (09:00)
[2023-11-06 10:44] VITALS: BP 149/62
[2023-11-06 20:00] VITALS: BP 135/73
[2023-11-06] MEDS ORDERED: Memantine Hydrochloride 10 MG TAB PO SCH (21:00)
[2023-11-06] MEDS ORDERED: NYSTATIN 15 GM BOT T SCH (22:00)
[2023-11-07 07:44] VITALS: BP 100/67
[2023-11-07] MEDS ORDERED: Rivastigmine Tartrate 9.5 MG/24 HR PATCH T SCH (09:00)
[2023-11-07] MEDS ORDERED: LIDOCAINE 4% PATCH T SCH (09:00)
[2023-11-07 10:06] VITALS: BP 162/82
[2023-11-07 20:00] VITALS: BP 117/90
[2023-11-07] MEDS ORDERED: RAMELTEON 8 MG TAB PO SCH (21:00)
[2023-11-08 08:00] VITALS: BP 105/62
[2023-11-08] MEDS ORDERED: RIVASTIGMINE 13.3 MG/24 HR TDM T SCH (09:00)
[2023-11-08 09:20] LABS: BASO % 0.3 % (0.0-1.0); EOS # 0.2 10*3/uL (0.0-0.4); EOS % 1.6 % (1.0-4.0); HEMATOCRIT 28.3 % (37.0-47.0); LYMPH % 18.1 % (27.0-41.0); MEAN CELL VOLUME 92.8 fl (81.0-99.0); MEAN CORPUSCULAR HGB 28.5 pg (27.0-31.0); MEAN CORPUSCULAR HGB CONC 30.7 g/dl (33.0-37.0); MEAN PLATELET VOLUME 9.8 fl (9.6-12.3); MONO # 0.6 10*3/uL (0.1-1.0); MONO % 5.5 % (3.0-9.0); NEUT # 8.1 10*3/uL (2.3-7.9); NEUT % 73.9 % (47.0-73.0); PLATELET COUNT AUTOMATED 378 10*3/uL (130-400); RED BLOOD COUNT 3.05 10*6/uL (4.10-5.10); RED CELL DISTRI WIDTH 15.5 % (0-14.5); WHITE BLOOD COUNT 10.9 10*3/uL (4.8-10.8)
[2023-11-08] MEDS ORDERED: Ondansetron Hydrochloride 4 MG TAB SL PRN (09:35)
[2023-11-08 09:48] LABS: POTASSIUM 4.4 mmol/L (3.4-5.1)
[2023-11-08 20:00] VITALS: BP 132/78
[2023-11-09 07:00] LABS: BASO % 0.2 % (0.0-1.0); EOS # 0.1 10*3/uL (0.0-0.4); EOS % 1.4 % (1.0-4.0); HEMATOCRIT 27.1 % (37.0-47.0); LYMPH % 22.4 % (27.0-41.0); MEAN CELL VOLUME 92.5 fl (81.0-99.0); MEAN CORPUSCULAR HGB 27.6 pg (27.0-31.0); MEAN CORPUSCULAR HGB CONC 29.9 g/dl (33.0-37.0); MEAN PLATELET VOLUME 9.6 fl (9.6-12.3); MONO # 0.5 10*3/uL (0.1-1.0); MONO % 5.3 % (3.0-9.0); NEUT # 6.2 10*3/uL (2.3-7.9); NEUT % 70.1 % (47.0-73.0); PLATELET COUNT AUTOMATED 365 10*3/uL (130-400); RED BLOOD COUNT 2.93 10*6/uL (4.10-5.10); RED CELL DISTRI WIDTH 15.5 % (0-14.5); WHITE BLOOD COUNT 8.8 10*3/uL (4.8-10.8)
[2023-11-09 07:27] LABS: POTASSIUM 4.9 mmol/L (3.4-5.1)
[2023-11-09 08:00] VITALS: BP 108/61
[2023-11-09] MEDS ORDERED: ATENOLOL 25 MG TAB PO SCH (09:00)
[2023-11-09] MEDS ORDERED: SODIUM CHLORIDE 0.9% 500 ML IV ONE (15:10)
[2023-11-09 19:13] VITALS: BP 114/43
[2023-11-09 20:30] VITALS: BP 122/62
[2023-11-10 07:10] LABS: BASO % 0.4 % (0.0-1.0); EOS # 0.1 10*3/uL (0.0-0.4); EOS % 1.1 % (1.0-4.0); HEMATOCRIT 29.6 % (37.0-47.0); LYMPH # 2.1 10*3/uL (1.3-4.4); LYMPH % 22.4 % (27.0-41.0); MEAN CORPUSCULAR HGB 27.6 pg (27.0-31.0); MEAN CORPUSCULAR HGB CONC 29.4 g/dl (33.0-37.0); MEAN PLATELET VOLUME 9.9 fl (9.6-12.3); MONO # 0.3 10*3/uL (0.1-1.0); MONO % 3.4 % (3.0-9.0); NEUT # 6.8 10*3/uL (2.3-7.9); NEUT % 72.2 % (47.0-73.0); PLATELET COUNT AUTOMATED 456 10*3/uL (130-400); RED BLOOD COUNT 3.15 10*6/uL (4.10-5.10); RED CELL DISTRI WIDTH 15.7 % (0-14.5); WHITE BLOOD COUNT 9.4 10*3/uL (4.8-10.8)
[2023-11-10 07:30] LABS: POTASSIUM 4.6 mmol/L (3.4-5.1)
[2023-11-10 08:00] VITALS: BP 114/57
[2023-11-10 20:00] VITALS: BP 126/97
[2023-11-11 06:48] LABS: BASO % 0.5 % (0.0-1.0); EOS # 0.1 10*3/uL (0.0-0.4); EOS % 1.1 % (1.0-4.0); HEMATOCRIT 27.9 % (37.0-47.0); LYMPH % 23.9 % (27.0-41.0); MEAN CELL VOLUME 92.4 fl (81.0-99.0); MEAN CORPUSCULAR HGB 27.8 pg (27.0-31.0); MEAN CORPUSCULAR HGB CONC 30.1 g/dl (33.0-37.0); MEAN PLATELET VOLUME 9.7 fl (9.6-12.3); MONO # 0.5 10*3/uL (0.1-1.0); MONO % 5.3 % (3.0-9.0); NEUT # 5.9 10*3/uL (2.3-7.9); PLATELET COUNT AUTOMATED 413 10*3/uL (130-400); RED BLOOD COUNT 3.02 10*6/uL (4.10-5.10); RED CELL DISTRI WIDTH 15.3 % (0-14.5); WHITE BLOOD COUNT 8.5 10*3/uL (4.8-10.8)
[2023-11-11 07:06] LABS: POTASSIUM 4.3 mmol/L (3.4-5.1)
[2023-11-11 07:14] VITALS: BP 116/65
[2023-11-11] MEDS ORDERED: Polyethylene Glycol 3350 17 GM PACKET PO PRN (14:33)
[2023-11-11 20:00] VITALS: BP 94/56
[2023-11-12 07:53] VITALS: BP 104/50
[2023-11-12 19:14] VITALS: BP 148/50
[2023-11-13 07:11] LABS: BASO # 0.1 10*3/uL (0.0-0.1); BASO % 0.8 % (0.0-1.0); EOS # 0.1 10*3/uL (0.0-0.4); HEMATOCRIT 27.9 % (37.0-47.0); LYMPH # 1.8 10*3/uL (1.3-4.4); MEAN CELL VOLUME 91.5 fl (81.0-99.0); MEAN CORPUSCULAR HGB 27.9 pg (27.0-31.0); MEAN CORPUSCULAR HGB CONC 30.5 g/dl (33.0-37.0); MEAN PLATELET VOLUME 9.8 fl (9.6-12.3); MONO # 0.4 10*3/uL (0.1-1.0); MONO % 5.5 % (3.0-9.0); NEUT # 5.3 10*3/uL (2.3-7.9); NEUT % 69.4 % (47.0-73.0); PLATELET COUNT AUTOMATED 401 10*3/uL (130-400); RED BLOOD COUNT 3.05 10*6/uL (4.10-5.10); RED CELL DISTRI WIDTH 15.8 % (0-14.5); WHITE BLOOD COUNT 7.7 10*3/uL (4.8-10.8)
[2023-11-13 08:00] VITALS: BP 133/54
[2023-11-13 20:00] VITALS: BP 118/65
[2023-11-14 07:46] VITALS: BP 124/53
[2023-11-14] MEDS ORDERED: LIDOCAINE PAIN1 EACH T (09:48)
[2023-11-14] MEDS ORDERED: MIRTAZAPINE15 M2 PO (09:48)
[2023-11-14] MEDS ORDERED: RIVASTIGMINE1 EAC2 T (09:48)
[2023-11-14] MEDS ORDERED: RAMELTEON8 MG PO (09:48)
[2023-11-14] MEDS ORDERED: MEMANTINE HCL10 MG PO (09:48)
[2023-11-14] MEDS ORDERED: ATENOLOL25 MG PO (10:48)
== END 2023-11-14 15:33 | DRG 885 ==
LOC: 3N 10:49
PROVIDERS: Internal Medicine; Registered Nurse; Student in an Organized Health Care Education/Training Program; ADMIT Psychiatry & Neurology Psychiatry; ATTEND Psychiatry & Neurology Psychiatry
PROC: GZHZZZZ Group Psychotherapy (ICD-10-PCS; principal; 2023-11-05)
PROC: GZ56ZZZ Individual Psychotherapy, Supportive (ICD-10-PCS; 2023-11-05)
DX: F33.1 Major depressive disorder, recurrent, moderate (principal); N18.31 Chronic kidney disease, stage 3a; E11.65 Type 2 diabetes mellitus with hyperglycemia; F02.B18 Dementia in other diseases classified elsewhere, moderate, with other behavioral disturbance; K92.2 Gastrointestinal hemorrhage, unspecified; G30.9 Alzheimer's disease, unspecified; K56.41 Fecal impaction; D64.9 Anemia, unspecified; E03.9 Hypothyroidism, unspecified; E11.22 Type 2 diabetes mellitus with diabetic chronic kidney disease; I12.9 Hypertensive chronic kidney disease with stage 1 through stage 4 chronic kidney disease, or unspecified chronic kidney disease; E53.8 Deficiency of other specified B group vitamins; E78.2 Mixed hyperlipidemia; M15.0 Primary generalized (osteo)arthritis; M51.37 Other intervertebral disc degeneration, lumbosacral region; S31.103A Unspecified open wound of abdominal wall, right lower quadrant without penetration into peritoneal cavity, initial encounter; Z88.8 Allergy status to other drugs, medicaments and biological substances; Z86.711 Personal history of pulmonary embolism; Z90.710 Acquired absence of both cervix and uterus; Z90.49 Acquired absence of other specified parts of digestive tract; Z82.49 Family history of ischemic heart disease and other diseases of the circulatory system; Z83.3 Family history of diabetes mellitus; Z79.4 Long term (current) use of insulin; Z91.09 Other allergy status, other than to drugs and biological substances; X58.XXXA Exposure to other specified factors, initial encounter; Y93.89 Activity, other specified; Y92.89 Other specified places as the place of occurrence of the external cause; Y99.8 Other external cause status

== ENCOUNTER 2024-04-28 07:36 | Emergency (ER) | payer MEDICARE ==
[~2024-04-28 07:36] MED LIST changes: +LIDOCAINE PAIN1 EACH T; +MEMANTINE HCL10 MG PO; +MIRTAZAPINE15 M2 PO; +RAMELTEON8 MG PO; +RIVASTIGMINE1 EAC2 T
[2024-04-28 07:39] VITALS: BP 132/67
== END 2024-04-28 12:18 | disposition home or self-care (01) ==
LOC: ED 07:36
DX: S00.83XA Contusion of other part of head, initial encounter (principal); M25.551 Pain in right hip; E11.9 Type 2 diabetes mellitus without complications; F03.90 Unspecified dementia, unspecified severity, without behavioral disturbance, psychotic disturbance, mood disturbance, and anxiety; D64.9 Anemia, unspecified; R51.9 Headache, unspecified; Z88.1 Allergy status to other antibiotic agents; Z88.8 Allergy status to other drugs, medicaments and biological substances; Z90.49 Acquired absence of other specified parts of digestive tract; Z90.89 Acquired absence of other organs; Z90.710 Acquired absence of both cervix and uterus; Z98.890 Other specified postprocedural states; W01.198A Fall on same level from slipping, tripping and stumbling with subsequent striking against other object, initial encounter; Y93.89 Activity, other specified; Y92.129 Unspecified place in nursing home as the place of occurrence of the external cause; Y99.8 Other external cause status